=== PATIENT | male | born 1995 | race Caucasian/White ===

== ENCOUNTER 2017-07-27 13:32 | Emergency (ER) | payer MEDICAID, OTHER | END 2017-07-27 14:54 | disposition home or self-care (01) | LOC: FTE 13:32 | DX: H61.23 Impacted cerumen, bilateral (principal); F17.210 Nicotine dependence, cigarettes, uncomplicated | CPT/HCPCS: 69209; 99282-25 ==

== ENCOUNTER 2017-07-29 20:00 | Emergency (ER) | payer MEDICAID ==
[2017-07-29] MEDS: metroNIDAZOLE 500 MG TAB PO (22:11)
[2017-07-29] MEDS: CEFTRIAXONE 250 MG INJ IM (22:11)
[2017-07-29] MEDS: AZITHROMYCIN 250 MG TAB PO (22:11)
[2017-07-29] MEDS: RANITIDINE 150 MG TAB PO (22:11)
[2017-07-29 23:25] LABS: HIV 1&2 ANTIBODY NEGATIVE (NEGATIVE)
== END 2017-07-30 01:00 | disposition home or self-care (01) ==
LOC: FTE 07-30 01:00
DX: A64 Unspecified sexually transmitted disease (principal); B86 Scabies; L73.9 Follicular disorder, unspecified; Z87.891 Personal history of nicotine dependence
CPT/HCPCS: 36415; 86703; 96372; 99284-25